=== PATIENT | female | born 1970 | race Caucasian/White ===

== ENCOUNTER 2018-07-19 15:52 | Observation (INO) | payer OTHER ==
[2018-07-19] MEDS ORDERED: DILAUDID 2 MG INJECTION IV PRN (16:15)
[2018-07-19] MEDS: Sodium Chloride 0.9% 1000 ML 1,000 ML IV SCH (16:57)
[2018-07-19 17:12] LABS: Hematocrit 40.3 % (35-47); Hemoglobin 13.4 gm/dl (12.0-16.0); Mean Cell Volume 90.2 fl (78-100); Mean Corpuscular Hgb Concent. 33.3 g/dl (32-36); Mean Platelet Volume 10.7 fl (6-9.5); Platelet Count 238 K/mm3 (150-450); Red Blood Count 4.47 M/mm3 (4.1-5.4); Red Cell Distribution Width 12.5 % (11.5-14.0); White Blood Count 6.5 K/mm3 (4.0-10.5)
[2018-07-19 17:38] LABS: ALBUMIN 4.2 g/dL (3.5-5.0); ALKALINE PHOSPHATASE 62 U/L (38-126); ANION GAP 13.3 MEQ/L (5-15); BLOOD UREA NITROGEN 19 mg/dL (7-17); CHLORIDE 107 mmol/L (98-107); Calcium 9.6 mg/dL (8.4-10.2); Carbon Dioxide 25 mmol/L (22-30); Creatinine 1 0.82 mg/dL (0.52-1.04); Glucose 130 mg/dL (74-106); Potassium 3.9 mmol/L (3.5-5.1); SGOT/AST 17 U/L (14-36); SGPT/ALT 21 U/L (0-35); SODIUM 142 mmol/L (137-145)
[2018-07-19 18:07] LABS: Appearance SLIGHTLY CLOUDY (CLEAR); Bilirubin NEGATIVE (NEGATIVE); Blood NEGATIVE Ery/ul (0-5); Epithelial Cells RARE /HPF (FEW); Glucose NEGATIVE (NEGATIVE); Ketones NEGATIVE (NEGATIVE); Leukocyte Esterase TRACE (NEGATIVE); Mucus SLIGHT /HPF (NEGATIVE); Nitrite NEGATIVE (NEGATIVE); Protein,Urine Dip NEGATIVE (Negative); Specific Gravity 1.019 (1.005-1.025); Urobilinogen NEGATIVE mg/dL (0-1); WBC 0-2 /HPF (0-5)
[2018-07-19 18:16] LABS: Bacteria NONE SEEN /HPF (NEGATIVE)
[2018-07-20] MEDS: Sodium Chloride 0.9% 1000 ML 1,000 ML IV SCH ×2 (03:28→14:05)
[2018-07-20 05:58] LABS: BLOOD UREA NITROGEN 15 mg/dL (7-17); CHLORIDE 107 mmol/L (98-107); Calcium 8.9 mg/dL (8.4-10.2); Carbon Dioxide 26 mmol/L (22-30); Creatinine 1 0.64 mg/dL (0.52-1.04); Glucose 110 mg/dL (74-106); Potassium 4.1 mmol/L (3.5-5.1); SODIUM 140 mmol/L (137-145)
[2018-07-20] MEDS: Zofran 4 MG/2 ML VIAL IV PRN ×2 (08:57→14:05)
--- NOTE | 2018-07-20 09:07 | XRAY ---
Indication: Lower abdomen pain. Multiple contiguous axial images obtained through the pelvis only without contrast as ordered. Comparison: June 23, 2015. Visualized noncontrasted bowel loops appear nonobstructed. No free fluid/air. Remaining bladder, uterus, aortoiliac vessels, and osseous structures unremarkable for noncontrast exam. No ventral/inguinal hernias. Impression: Stable negative CT pelvis without contrast exam. CT DI 23.68
--- NOTE | 2018-07-20 09:10 | XRAY ---
Indication: Low back pain. Comparison: None 5 views of the lumbar spine demonstrates 4 typical lumbar segments with sacralized L5 in normal alignment with minimal L4-L5 disc space narrowing. No acute fracture, subluxation, or pars intra-articularis defect. Visualized soft tissues demonstrates cholecystectomy clips. Impression: Nonacute lumbar spine with chronic features.
--- NOTE | 2018-07-20 09:12 | XRAY ---
Indication: Lower abdomen pain. Multiple contiguous axial images obtained through the abdomen only without contrast as ordered. Comparison: June 23, 2015. Lung bases demonstrates minimal bibasilar dependent atelectasis. No infiltrate or effusion. Heart is not enlarged. Noncontrasted stomach and visualized bowel loops again appear nonobstructed. No free fluid/air. Again previous cholecystectomy. Remaining visualized liver, pancreas, spleen, adrenal glands, kidneys, ureters, aortoiliac vessels, and osseous structures unremarkable for noncontrast exam. No ventral hernia. Impression: Stable negative CT abdomen without contrast exam. CT DI 23.55
[2018-07-20] MEDS ORDERED: FLUZONE QUAD (36mo-64yo) 2018-2019 SYRINGE IM ONE (10:00)
--- NOTE | 2018-07-20 13:07 | PCM.NOTE ---
Date and Time: 07/20/18 1306 Subjective Assessment: still c/o abdominal pain - Review of Systems Constitutional: No Fever, No Chills Eyes: No Symptoms Ears, Nose, & Throat: No Symptoms Respiratory: No Cough, No Short Of Breath Cardiac: No Chest Pain, No Edema, No Syncope Abdominal/Gastrointestinal: Abdominal Pain, No Nausea, No Vomiting, No Diarrhea Genitourinary Symptoms: No Dysuria Musculoskeletal: No Back Pain, No Neck Pain Skin: No Rash Neurological: No Dizziness, No Focal Weakness, No Sensory Changes Psychological: No Symptoms Endocrine: No Symptoms Hematologic/Lymphatic: No Symptoms Immunological/Allergic: No Symptoms Objective Exam General Appearance: no apparent distress, alert Neurologic Exam: alert, oriented x 3, cooperative, normal mood/affect, nml cerebellar function, sensation nml, No motor deficits Skin Exam: normal color, warm, dry Eye Exam: PERRL, EOMI, eyes nml inspection Ears, Nose, Throat Exam: normal ENT inspection, pharynx normal, moist mucous membranes Neck Exam: normal inspection, non-tender, supple, full range of motion Respiratory Exam: normal breath sounds, lungs clear, No respiratory distress Cardiovascular Exam: regular rate/rhythm, normal heart sounds Gastrointestinal/Abdomen Exam: soft, No tenderness, No mass Extremity Exam: normal inspection, normal range of motion Back Exam: normal inspection, normal range of motion, No CVA tenderness, No vertebral tenderness Pelvic Exam: deferred Rectal Exam: deferred OBJECTIVE DATA Vital Signs: Vital Signs - 24 hr Temp Pulse Resp BP Pulse Ox 07/20/18 08:00 98.3 F 72 20 122/71 96 07/20/18 04:24 98.2 F 65 16 112/72 96 07/19/18 23:53 98.0 F 69 15 116/66 95 07/19/18 19:33 97.9 F 82 16 120/58 95 07/19/18 17:43 97.6 F 95 H 20 115/73 98 07/19/18 16:25 97.6 F 95 H 20 115/73 98 Pain Assessment - Last Documented Pain Intensity 4 Pain Scale Used 0-10 Pain Scale Intake and Output: Intake & Output 07/18/18 07/19/18 07/20/18 07/21/18 11:59 11:59 11:59 11:59 Intake Total 1936 Output Total 700 Balance 1236 Weight 107.1 kg Lab Results: Lab Results-Last 24 Hours 07/19/18 07/19/18 07/19/18 Range/Units 16:00 17:38 Unknown WBC 6.5 (4.0-10.5) K/mm3 RBC 4.47 (4.1-5.4) M/mm3 Hgb 13.4 (12.0-16.0) gm/dl Hct 40.3 (35-47) % MCV 90.2 (78-100) fl MCH 30.0 (26-32) pg MCHC 33.3 (32-36) g/dl RDW 12.5 (11.5-14.0) % Plt Count 238 (150-450) K/mm3 MPV 10.7 H (6-9.5) fl Sodium 142 (137-145) mmol/L Potassium 3.9 (3.5-5.1) mmol/L Chloride 107 (98-107) mmol/L Carbon Dioxide 25 (22-30) mmol/L Anion Gap 13.3 (5-15) MEQ/L BUN 19 H (7-17) mg/dL Creatinine 0.82 (0.52-1.04) mg/dL Estimated GFR > 60.0 ML/MIN Glucose 130 H (74-106) mg/dL Calcium 9.6 (8.4-10.2) mg/dL Total Bilirubin 0.40 (0.2-1.3) mg/dL AST 17 (14-36) U/L ALT 21 (0-35) U/L Alkaline Phosphatase 62 (38-126) U/L Serum Total Protein 7.0 (6.3-8.2) g/dL Albumin 4.2 (3.5-5.0) g/dL Urine Color YELLOW (YELLOW) Urine Appearance SLIGHTLY CLOUDY (CLEAR) Urine pH 5.0 (5-6) Ur Specific [place] 1.019 (1.005-1.025) Urine Protein NEGATIVE (Negative) Urine Ketones NEGATIVE (NEGATIVE) Urine Blood NEGATIVE (0-5) Vinayak/ul Urine Nitrite NEGATIVE (NEGATIVE) Urine Bilirubin NEGATIVE (NEGATIVE) Urine Urobilinogen NEGATIVE (0-1) mg/dL Ur Leukocyte Esterase TRACE (NEGATIVE) Urine WBC (Auto) 0-2 (0-5) /HPF Urine RBC (Auto) 3-5 (0-2) /HPF U Epithel Cells (Auto) RARE (FEW) /HPF Urine Bacteria (Auto) NONE SEEN (NEGATIVE) /HPF Urine Mucus (Auto) SLIGHT (NEGATIVE) /HPF Urine Glucose NEGATIVE (NEGATIVE) mg/dL 07/20/18 Range/Units 05:25 WBC (4.0-10.5) K/mm3 RBC (4.1-5.4) M/mm3 Hgb (12.0-16.0) gm/dl Hct (35-47) % MCV (78-100) fl MCH (26-32) pg MCHC (32-36) g/dl RDW (11.5-14.0) % Plt Count (150-450) K/mm3 MPV (6-9.5) fl Sodium 140 (137-145) mmol/L Potassium 4.1 (3.5-5.1) mmol/L Chloride 107 (98-107) mmol/L Carbon Dioxide 26 (22-30) mmol/L Anion Gap 11.0 (5-15) MEQ/L BUN 15 (7-17) mg/dL Creatinine 0.64 (0.52-1.04) mg/dL Estimated GFR > 60.0 ML/MIN Glucose 110 H (74-106) mg/dL Calcium 8.9 (8.4-10.2) mg/dL Total Bilirubin (0.2-1.3) mg/dL AST (14-36) U/L ALT (0-35) U/L Alkaline Phosphatase (38-126) U/L Serum Total Protein (6.3-8.2) g/dL Albumin (3.5-5.0) g/dL Urine Color (YELLOW) Urine Appearance (CLEAR) Urine pH (5-6) Ur Specific [place] (1.005-1.025) Urine Protein (Negative) Urine Ketones (NEGATIVE) Urine Blood (0-5) Vinayak/ul Urine Nitrite (NEGATIVE) Urine Bilirubin (NEGATIVE) Urine Urobilinogen (0-1) mg/dL Ur Leukocyte Esterase (NEGATIVE) Urine WBC (Auto) (0-5) /HPF Urine RBC (Auto) (0-2) /HPF U Epithel Cells (Auto) (FEW) /HPF Urine Bacteria (Auto) (NEGATIVE) /HPF Urine Mucus (Auto) (NEGATIVE) /HPF Urine Glucose (NEGATIVE) mg/dL Radiology Exams: Radiology Procedures Category Date Time Status ABDOMEN WITHOUT CONTRAST [CT] Stat Exams 07/19/18 20:48 Completed LUMBAR COMPLETE (MIN 4 VIEWS) Routine Exams 07/19/18 16:30 Completed PELVIS WITHOUT CONTRAST [CT] Routine Exams 07/19/18 16:30 Completed Multi-Disciplinary Progress Notes: Multi-Disciplinary Progress Notes 07/19/18 20:20 Respiratory Note by Jeannette,Bruce INITIATED SMOKING CESSATION WITH PT AND SHE STATED THAT SHE HAS BEEN SMOKE FREE FOR 3 YEARS. I GAVE HER A CONGRATS AND STATED THAT I WOULD NOTIFY NURSING OF THIS INFO. Initialized on 07/19/18 20:20 - END OF NOTE Assessment/Plan (1) Abdominal pain Current Visit: Yes Status: Acute Onset Date: ~07/19/18 Qualifiers: Abdominal location: epigastric Qualified Code(s): R10.13 - Epigastric pain Code(s): R10.9 - UNSPECIFIED ABDOMINAL PAIN (2) Vomiting Current Visit: Yes Status: Resolved Onset Date: ~07/19/18 Code(s): R11.10 - VOMITING, UNSPECIFIED
[2018-07-20] MEDS ORDERED: TYLENOL EXTRA STRENGTH 500 MG PO PRN (13:51)
[2018-07-20] MEDS ORDERED: Zofran 4 MG/2 ML VIAL IV PRN (13:51)
[2018-07-20 16:02] LABS: Appearance CLEAR (CLEAR); Bilirubin NEGATIVE (NEGATIVE); Blood NEGATIVE Ery/ul (0-5); Glucose NEGATIVE (NEGATIVE); Ketones NEGATIVE (NEGATIVE); Leukocyte Esterase NEGATIVE (NEGATIVE); Mucus SLIGHT /HPF (NEGATIVE); Nitrite NEGATIVE (NEGATIVE); Protein,Urine Dip NEGATIVE (Negative); Urobilinogen NEGATIVE mg/dL (0-1)
[2018-07-20 16:05] LABS: Bacteria NONE SEEN /HPF (NEGATIVE)
[2018-07-20 18:57] VITALS: BP 129/89; PULSE 79; O2SAT 96
--- NOTE | 2018-07-22 08:20 | PCM.DS ---
Discharge Summary Date of Admission: 07/19/18 15:52 Admitting Physician: MERY LERMA Primary Care Provider: GRETA COX Allergies Allergies No Known Drug Allergies Allergy (Verified 07/19/18 16:15) Hospital Summary - Hospital Course Hospital Course: Last Vital Signs Temp 98.0 F 07/20/18 18:57 Pulse 79 07/20/18 18:57 Resp 17 07/20/18 18:57 BP 129/89 07/20/18 18:57 Pulse Ox 96 07/20/18 18:57 Allergies No Known Drug Allergies Allergy (Verified 07/19/18 16:15) Intake & Output 07/21/18 07/22/18 11:59 11:59 Intake Total 240 Output Total 1150 Balance -910 Microbiology 07/20/18 15:45 Urine, Catheterized Urine Culture - Preliminary NO GROWTH TO DATE - Vitals & Intake/Output Vital Signs: Vital Signs Temperature 98.0 F 07/20/18 18:57 Pulse Rate 79 07/20/18 18:57 Respiratory Rate 17 07/20/18 18:57 Blood Pressure 129/89 07/20/18 18:57 O2 Sat by Pulse Oximetry 96 07/20/18 18:57 Intake & Output: Intake & Output 07/19/18 07/20/18 07/21/18 07/22/18 11:59 11:59 11:59 11:59 Intake Total 1936 240 Output Total 700 1150 Balance 1236 -910 Weight 107.1 kg - Lab Result Diagrams: 07/19/18 16:00 07/20/18 05:25 Micro Results-Entire Visit: Microbiology 07/20/18 15:45 Urine Culture - Preliminary Urine, Catheterized NO GROWTH TO DATE - Procedures and Test Procedures and Tests throughout Hospitalization: Therapy Orders & Screens 07/19/18 18:01 OT Screen per Nursing Assess Comment: Protocol Order Physician Instructions: Greater than 3 points order OT Admission Screening Reason For Exam: Triggered on Admission Diagnosis: Lower abd pain. Open Wound/Cellutlitis/Pressure Ulcers: No Acute Fx/ORIF/Change in wt bearing status: No Severe MUSCULOSKELETAL pain: Yes ADL Dysfunction: No Acute CVA w/Hemiparesis/Hemiplegia: No Decreased Functional Mobility/Strength: No Sprain/Strain: No Acute Post-op Mobility Dysfunction: No Total Points: 5 PT Screen per Nursing Assess Comment: Protocol Order Physician Instructions: Greater than 3 points order PT Admission Screenin Reason For Exam: Triggered on Admission Diagnosis: Lower abd pain. Open Wound/Cellutlitis/Pressure Ulcers: No Acute Fx/ORIF/Change in wt bearing status: No Severe MUSCULOSKELETAL pain: Yes ADL Dysfunction: No Acute CVA w/Hemiparesis/Hemiplegia: No Decreased Functional Mobility/Strength: No Sprain/Strain: No Acute Post-op Mobility Dysfunction: No Total Points: 5 Smoking Cessation Education ONCE Comment: Diagnosis: Lower abd pain. Smoking Status: Current every day smoker How long have you smoked: 5 Have you smoked in the past 12 months: No Approximately how many cigarettes per day: 20 Do you dip or chew tobacco: No If,Former Smoker,when did you quit: 5 WEEKS AGO Discharge Exam General Appearance: no apparent distress, alert Neurologic Exam: alert, oriented x 3, cooperative, normal mood/affect, nml cerebellar function, sensation nml, No motor deficits Skin Exam: normal color, warm, dry Eye Exam: PERRL, EOMI, eyes nml inspection Ears, Nose, Throat Exam: normal ENT inspection, pharynx normal, moist mucous membranes Neck Exam: normal inspection, non-tender, supple, full range of motion Respiratory Exam: normal breath sounds, lungs clear, No respiratory distress Cardiovascular Exam: regular rate/rhythm, normal heart sounds Gastrointestinal/Abdomen Exam: soft, No tenderness, No mass Extremity Exam: normal inspection, normal range of motion Back Exam: normal inspection, normal range of motion, No CVA tenderness, No vertebral tenderness Pelvic Exam: deferred Rectal Exam: deferred Final Diagnosis/Problem List - Final Discharge Diagnosis/Problem (1) Abdominal pain Status: Resolved Onset Date: ~07/19/18 Assessment & Plan: Chief Complaint Diagnosis Lower abd pain. Allergies Allergy/AdvReac Type Severity Reaction Status Date / Time No Known Drug Allergies Allergy Verified 07/19/18 16:15 Home Medications Medication Instructions Recorded Confirmed Last Taken Type Meloxicam 7.5 mg [Mobic 7.5 7.5 mg PO DAILY 07/19/18 07/19/18 07/15/18 History MG] Metformin HCl [Glucophage Xr] 500 mg PO DAILY 07/19/18 07/19/18 07/15/18 History Current Medications Discontinued Medications Generic Name Dose Route Start Last Admin Trade Name Freq PRN Reason Stop Dose Admin Acetaminophen 1,000 mg 07/20/18 13:51 07/20/18 14:09 Tylenol Extra Strength 500 Mg PO 08/19/18 13:50 1,000 mg Q4H PRN PRN Administration HEADACHE Hydromorphone HCl 1 mg 07/19/18 16:15 07/19/18 16:57 Dilaudid 2 Mg Injection IV 07/24/18 16:14 1 mg Q4H PRN PRN Administration PAIN Sodium Chloride 1,000 mls @ 100 mls/hr 07/19/18 16:15 07/20/18 14:05 Sodium Chloride 0.9% 1000 Ml IV 08/18/18 16:14 100 mls/hr .Q10H GRAYSON Administration Influenza Virus Vaccine 60 mcg 07/20/18 10:00 07/20/18 11:14 Fluzone Quad (36mo-64yo) [id number] Syringe IM 07/20/18 10:01 60 mcg .ONCE ONE Administration Ondansetron HCl 4 mg 07/19/18 16:17 07/20/18 14:05 Zofran 4 Mg/2 Ml Vial IV 08/18/18 16:16 4 mg Q6H PRN PRN Administration NAUSEA/VOMITING Ondansetron HCl 4 mg 07/20/18 13:51 Zofran 4 Mg/2 Ml Vial IV 08/19/18 13:50 Q4H PRN PRN NAUSEA/VOMITING Intake & Output (Last 24 hours) 07/19/18 07/20/18 07/21/18 07/22/18 11:59 11:59 11:59 11:59 Intake Total 1936 240 Output Total 700 1150 Balance 1236 -910 Weight 107.1 kg Microbiology Results (Last 24 hours) 07/20/18 15:45 Urine, Catheterized Urine Culture - Preliminary NO GROWTH TO DATE (2) Vomiting Status: Resolved Onset Date: ~07/19/18 - Discharge Discharge Date: 07/22/18 Disposition: Home, Self-Care Condition: Stable Prescriptions: No Action Meloxicam 7.5 mg [Mobic 7.5 MG] 7.5 mg PO DAILY Metformin HCl [Glucophage Xr] 500 mg PO DAILY Instructions: Acute Abdomen (Belly Pain), Adult (DC), Nausea and Vomiting, Adult (DC) Follow up with: MERY LERMA [ACTIVE STAFF] - 07/31/18 2:15 pm (at [email or web address]) Forms: Discharge Instructions
== END 2018-07-20 19:02 | disposition home or self-care (01) ==
LOC: MED SURG 15:52
PROVIDERS: ADMIT General Practice; ATTEND General Practice
DX: R10.30 Lower abdominal pain, unspecified (principal); Z23 Encounter for immunization; M54.5 Low back pain; E66.8 Other obesity; Z79.899 Other long term (current) drug therapy
CPT/HCPCS: 36415; 72110; 72192; 74150; 80048; 80053; 81001; 85027; 87086; G0008; G0378; 90686; J1170; J2405; A9270-GY